=== PATIENT | male | born 1945 | race Two or more races ===

== ENCOUNTER 2020-08-29 07:54 | Day surgery (SDC) | payer OTHER | END 2020-08-29 11:42 | disposition home or self-care (01) | LOC: AMB-ENDOS 07:54 | PROVIDERS: ATTEND Colon & Rectal Surgery | DX: K62.89 Other specified diseases of anus and rectum (principal); K64.0 First degree hemorrhoids; Z20.822 Contact with and (suspected) exposure to COVID-19 ==